=== PATIENT | female | born 1990 | race Caucasian/White ===

== ENCOUNTER 2018-01-01 15:31 | Emergency (ER) | payer OTHER ==
[~2018-01-01] VITALS: Ht 154.9 cm; Wt 57.2 kg
[2018-01-01 15:36] VITALS: BP 123/77
[2018-01-01 16:47] LABS: HEMATOCRIT 35.1 % (36-48); HEMOGLOBIN 11.4 g/dL (12.0-16.0); MEAN CORPUSCULAR HEMOGLOBIN 29 pg (27-31); MEAN CORPUSCULAR HGB CONC 33 g/dL (33-37); MEAN CORPUSCULAR VOLUME 87.5 fL (80-94); PLATELET COUNT (AUTO) 211 K/uL (140-450); RED BLOOD CELL COUNT(AUTO) 4.02 MIL/uL (4.20-5.40); RED CELL DISTRIBUTION WIDTH 12.9 % (11.6-13.7); WHITE BLOOD COUNT (AUTO) 18.5 K/uL (4.8-10.8)
[2018-01-01] MEDS: ACETAMINOPHEN EXTRA STRENGTH 500 MG TAB PO ONE (17:14)
[2018-01-01 17:22] LABS: ANION GAP 9.8 (8-16); CARBON DIOXIDE 26.3 mmol/L (21-32); POTASSIUM 4.1 mmol/L (3.5-5.1)
[2018-01-01 17:25] LABS: CREATININE 0.5 mg/dL (0.6-1.3); TOTAL BILIRUBIN 0.3 mg/dL (0.0-1.0)
[2018-01-01] MEDS: ONDANSETRON 4 MG ODT PO ONE (17:26)
[2018-01-01 18:02] LABS: BASOPHILS % (MANUAL) 1 % (0-2); LYMPHOCYTES % (MANUAL) 15 % (20-46)
[2018-01-01 18:06] LABS: APPEARANCE,URINE HAZY (CLEAR)
[2018-01-01 18:07] LABS: BILIRUBIN,URINE NEGATIVE (NEGATIVE); BLOOD, URINE NEGATIVE (NEGATIVE); COLOR,URINE YELLOW (YELLOW); LEUKOCYTE ESTERASE ,URINE TRACE (NEGATIVE); NITRITE, URINE NEGATIVE (NEGATIVE); UGLUCOSE NEGATIVE (NEGATIVE)
[2018-01-01 18:13] LABS: RBC,URINE NONE SEEN /HPF (0-5); WBC,URINE 0-5 (RARE) /HPF (0-5)
[2018-01-01 23:15] VITALS: BP 119/75
== END 2018-01-01 23:15 | disposition short-term general hospital (02) ==
LOC: MED 15:31
DX: O26.892 Other specified pregnancy related conditions, second trimester (principal); O21.8 Other vomiting complicating pregnancy; R10.31 Right lower quadrant pain; Z3A.15 15 weeks gestation of pregnancy
CPT/HCPCS: 36415; 76705; 76805; 80053; 81001; 83690; 84702; 85025; 99285; Q0092; S0119